=== PATIENT | male | born 1985 | race Caucasian/White ===

== ENCOUNTER 2017-01-28 10:02 | Emergency (ER) | payer OTHER ==
[~2017-01-28] VITALS: Ht 185.4 cm; Wt 95.3 kg
[~2017-01-28 10:02] MED LIST: CLIN300C3 PO; HYDR-3812 PO; PRD20T PO
--- OUTSIDE RECORDS SUMMARY | 2017-01-28 10:08 | XMS REPORT | Continuity of Care Document ---
Author Author [facility] Organization [facility] Address Unknown Phone Unavailable Allergies Active Description Code Type Severity Reaction Onset Reported/Identified Relationship to Patient Clinical Status Yes Penicillins [id number] Drug Allergy Unknown ANAPHYLAXIS 11/17/2015 Medications Problems Date Dx Coded Attending Type Code Diagnosis Diagnosed By 11/12/2015 JOEL CHOW Ot J01.90 11/18/2015 TABATHA GARCIA, VICENTE P Ot J32.1 11/18/2015 TABATHA GARCIA, VICENTE P Ot J32.2 11/24/2015 TABATHA GARCIA, VICENTE P Ot J32.4 11/24/2015 TABATHA GARCIA, VICENTE P Ot J34.2 11/24/2015 TABATHA GARCIA, VICENTE P Ot Z01.818 11/28/2015 TABATHA GARCIA, VICENTE P Ot J32.4 11/28/2015 TABATHA GARCIA, VICENTE P Ot J34.2 11/28/2015 TABATHA GARCIA, VICENTE P Ot Z01.818 12/15/2015 JOEL CHOW Ot J01.90 12/15/2015 TABATHA GARCIA, VICENTE P Ot J32.4 12/15/2015 TABATHA GARCIA, VICENTE P Ot J34.2 12/15/2015 TABATHA GARCIA, VICENTE P Ot Z01.818 Procedures Results Encounters ACCT No. Visit Date/Time Discharge Status Pt. Type Provider Facility Loc./Unit Complaint [id number] 11/18/2015 09:32:00 2014 18:00:00 DIS Outpatient VICENTE MAYS MD [facility] SDC [id number] 11/17/2015 05:29:00 ACT Outpatient VICENTE MAYS MD [facility] PREOP [id number] 10/28/2015 12:03:00 ACT Outpatient JOEL CHOW [facility] RAD
--- NOTE | 2017-01-28 11:13 | ED GI ---
General Chief Complaint: Abdominal/GI Problems Stated Complaint: RECTAL BLEEDING PASSED OUT/HEAD INJURY Source of Information: Patient Exam Limitations: No Limitations History of Present Illness Time Seen By Provider: 11:10 Initial Comments To ER with reports of rectal bleeding over the past 3-4 days. He states that he 's had left lower quadrant abdominal pain for about 3 weeks. Starting about 3 days ago he noticed blood on the toilet paper when wiping that was a maroon color. He also reports what appears to be some mucus-like material in his stools. He reports nausea but no fevers. No history of Crohn's or ulcerative colitis. He rates the pain a 7 out of 10. Today he had leave class to go to the bathroom. When he stood up from going to the bathroom he became lightheaded though he did not actually pass out. He did scrape the left cheek on the bathroom stall but there is no marked there currently. He is attending [employer]. He did finish azithromycin yesterday for sinus infection but he states that he had the left lower quadrant pain several weeks before starting the Zithromax and the blood for starting the Zithromax. Timing/Duration: Getting Worse, Intermittent Severity/Quality: Moderate Location: LLQ Activities at Onset: None Associated Symptoms: No Fever/Chills, Nausea/Vomiting Allergies and Home Medications Allergies Coded Allergies: Penicillins (Verified Allergy, Unknown, ANAPHYLAXIS, 11/17/15) Home Medications Ciprofloxacin HCl 500 Mg Tablet #14 500 MG PO BID Prescribed by: JUDY MONSIVAIS on 01/28/17 1153 Hydrocodone/Acetaminophen 1 Each Tablet #14 1 EACH PO Q4H PRN PRN PAIN Prescribed by: JUDY MONSIVAIS on 01/28/17 1153 L.acidoph & Paracasei,B.lactis 1 Each Capsule #14 1 EACH PO TID Prescribed by: JUDY MONSIVAIS on 01/28/17 1155 Metronidazole 500 Mg Tablet #21 500 MG PO TID Prescribed by: JUDY MONSIVAIS on 01/28/17 1153 Review of Systems Constitutional: see HPI EENTM: No Symptoms Reported Respiratory: No Symptoms Reported Cardiovascular: No Symptoms Reported Gastrointestinal: See HPI Abdominal Pain Diarrhea Nausea Genitourinary: No Symptoms Reported Musculoskeletal: no symptoms reported Skin: no symptoms reported Psychiatric/Neurological: No Symptoms Reported Endocrine: No Symptoms Reported Hematologic/Lymphatic: No Symptoms Reported Past Ddsybgt-Fnwuqq-Lqhukd Hx Patient Social History Recent Foreign Travel: No Contact w/Someone Who Travel: No Surgeries HX Surgeries: Yes Respiratory Hx Respiratory Disorders: No Cardiovascular Hx Cardiac Disorders: No Neurological Hx Neurological Disorders: No Genitourinary Hx Genitourinary Disorders: No Gastrointestinal Hx Gastrointestinal Disorders: Yes Gastrointestinal Disorders: Irritable Bowel Musculoskeletal Hx Musculoskeletal Disorders: No HEENT HX ENT Disorders: Yes (deviated septum, ) Cancer Hx Cancer: No Psychosocial Hx Psychiatric Problems: No Integumentary HX Skin/Integumentary Disorder: No Blood Transfusions Hx Blood Disorders: No Physical Exam Vital Signs VS - Last 72 Hours, by Label 01/28/17 11:10 Temp 98.6 Pulse 80 Resp 18 B/P 137/106 Pulse Ox 98 Capillary Refill : General Appearance: WD/WN no apparent distress HEENT: PERRL/EOMI normal ENT inspection Neck: non-tender full range of motion Respiratory: no respiratory distress no accessory muscle use Gastrointestinal: normal bowel sounds soft tenderness Extremities: normal range of motion non-tender Neurologic/Psychiatric: alert normal mood/affect oriented x 3 Skin: normal color warm/dry Progress/Results/Core Measures Results/Orders Lab Results Laboratory Tests Test 01/28/17 11:06 01/28/17 11:35 Range/Units Alanine Aminotransferase (ALT/SGPT) 114 H 0-55 U/L Albumin 4.8 H 3.2-4.5 G/DL Alkaline Phosphatase 88 40-136 U/L Anion Gap 8 5-14 MMOL/L Aspartate Amino Transf (AST/SGOT) 47 H 5-34 U/L BUN/Creatinine Ratio 14 Basophils # (Auto) 0.0 0.0-0.1 10^3/uL Basophils (%) (Auto) 0 0-10 % Blood Urea Nitrogen 14 7-18 MG/DL Calcium Level 9.8 8.5-10.1 MG/DL Carbon Dioxide Level 27 21-32 MMOL/L Chloride Level 105 98-107 MMOL/L Creatinine 1.00 0.60-1.30 MG/DL Eosinophils # (Auto) 0.2 0.0-0.3 10^3/uL Eosinophils (%) (Auto) 3 0-10 % Erythrocyte Sedimentation Rate 1 0-15 MM/HR Estimat Glomerular Filtration Rate > 60 Glucose Level 75 70-105 MG/DL Hematocrit 48 40-54 % Hemoglobin 16.7 13.3-17.7 G/DL Lymphocytes # (Auto) 2.1 1.0-4.0 X 10^3 Lymphocytes (%) (Auto) 38 12-44 % Mean Corpuscular Hemoglobin 30 25-34 PG Mean Corpuscular Hemoglobin Concent 35 32-36 G/DL Mean Corpuscular Volume 84 80-99 FL Mean Platelet Volume 9.6 7.4-10.4 FL Monocytes # (Auto) 0.6 0.0-1.0 X 10^3 Monocytes (%) (Auto) 10 0-12 % Neutrophils # (Auto) 2.8 1.8-7.8 X 10^3 Neutrophils (%) (Auto) 50 42-75 % Platelet Count 257 130-400 10^3/uL Potassium Level 4.7 3.6-5.0 MMOL/L Red Blood Count 5.63 4.35-5.85 10^6/uL Red Cell Distribution Width 12.1 10.0-14.5 % Sodium Level 140 135-145 MMOL/L Total Bilirubin 0.7 0.1-1.0 MG/DL Total Protein 8.0 6.4-8.2 G/DL White Blood Count 5.7 4.3-11.0 10^3/uL Urine Bacteria NEGATIVE /HPF Urine Bilirubin NEGATIVE NEGATIVE Urine Casts NONE /LPF Urine Clarity CLEAR Urine Color YELLOW Urine Crystals NONE /LPF Urine Culture Indicated NO Urine Glucose (UA) NEGATIVE NEGATIVE Urine Ketones NEGATIVE NEGATIVE Urine Leukocyte Esterase NEGATIVE NEGATIVE Urine Mucus NEGATIVE /LPF Urine Nitrite NEGATIVE NEGATIVE Urine Protein NEGATIVE NEGATIVE Urine RBC RARE /HPF Urine RBC (Auto) NEGATIVE NEGATIVE Urine Specific Moro 1.005 L 1.016-1.022 Urine Squamous Epithelial Cells NONE /HPF Urine Urobilinogen NORMAL NORMAL MG/DL Urine WBC NONE /HPF Urine pH 7 5-9 My Orders Orders-JUDY MONSIVAIS [employer]ANSIT PLANNING MANAGER Cbc With Automated Diff (01/28/17 10:59) Comprehensive Metabolic Panel (01/28/17 10:59) Ua Culture If Indicated (01/28/17 10:59) Saline Lock/Iv-Start (01/28/17 10:59) Erythrocyte Sedimentation Rate (01/28/17 11:09) Ct Abdomen/Pelvis W (01/28/17 11:09) Ketorolac Injection (Toradol Injection) (01/28/17 11:15) Iohexol Injection (Omnipaque 350 Mg/Ml 1 (01/28/17 11:30) Sodium Chloride Flush (Catheter Flush Sy (01/28/17 11:30) Ns (Ivpb) (Sodium Chloride 0.9% Ivpb Bag (01/28/17 11:30) Stool Culture (01/28/17 11:54) C Difficile Ag + Toxin A/B. (01/28/17 11:54) Medications Given in ED Current Medications Medications Dose Ordered Sig/Nilson Route Start Time Stop Time Status Last Admin Dose Admin Iohexol 100 ml ONCE ONCE IV 01/28/17 11:30 01/28/17 11:31 DC 01/28/17 11:22 100 ML Ketorolac Tromethamine 30 mg ONCE ONCE IVP 01/28/17 11:15 01/28/17 11:16 DC 01/28/17 11:37 30 MG Sodium Chloride 100 ml ONCE ONCE IV 01/28/17 11:30 01/28/17 11:31 DC 01/28/17 11:22 80 ML Vital Signs/I&O Vital Sign - Last 12Hours 01/28/17 11:10 Temp 98.6 Pulse 80 Resp 18 B/P 137/106 Pulse Ox 98 Diagnostic Imaging Diagonstic Imaging: CT Plain Films/CT/US/NM/MRI: abdomen, pelvis Comments NAME: JO-ANN SHANKS [facility] REC#: [id number] PT STATUS: REG ER : 1985 PHYSICIAN: JUDY MONSIVAIS TRANSIT PLANNING MANAGER ADMIT DATE: 01/28/17/ER Draft Date of Exam:01/28/17 CT ABDOMEN/PELVIS W PROCEDURE: CT abdomen and pelvis with contrast. TECHNIQUE: Multiple contiguous axial images were obtained through the abdomen and pelvis after administration of intravenous contrast. INDICATION: Bloody stools with diarrhea and nausea Low density seen throughout the liver. No focal hepatic or splenic abnormality is identified. Gallbladder, pancreas and adrenal glands are unremarkable in appearance. Kidneys are also within normal limits for size without evidence of hydronephrosis or perinephric inflammation. There is no evidence of free fluid in the abdomen. No pathologic abdominal adenopathy is seen. There is mild fluid distention of small bowel in the lower abdomen and pelvis. No transition point is seen to indicate an obstruction. Partially opacified urinary bladder is unremarkable. There is no organized fluid collection. There is a rounded calcification to the right of the penile shaft which may represent a phlebolith. IMPRESSION: There may be mild hepatic steatosis. Otherwise, no acute abnormality is identified. Dictated on workstation # [id number] Dict: 01/28/17 1140 Trans: 01/28/17 1145 BRIT [id number] Interpreted by: DENISE ALVAREZ MD Electronically signed by: Departure Communication Progress Notes 1207-question of diverticuli in the sigmoid colon on CT imaging. However he did just finish azithromycin this could also be a pseudomembranous colitis Impression Impression: Primary Impression: Hematochezia Additional Impression: LLQ pain Disposition: HOME, SELF-CARE Condition: Stable Departure-Patient Inst. Decision time for Depature: 11:51 Referrals: DIVYA NOBLES BRETT D DO JENKINS, XAVIER M MD KIDO, TAKAAKI MD NO,LOCAL PHYSICIAN (PCP) Primary Care Physician Patient Instructions: Diverticulitis Add. Discharge Instructions: 1. Return to ER for any concerns 2. Follow-up with your regular physician next week. The local surgeons have been listed. You should follow up with them to discuss a colonoscopy given your rectal bleeding and to confirm the diagnosis of diverticulosis/diverticulitis. 3. Medication as directed All discharge instructions reviewed with patient and/or family. Voiced understanding. Scripts L.acidoph & Paracasei,B.lactis (Probiotic)1 Each Capsule1 Each PO TID #14 CAP Prov:JUDY MONSIVAIS APRN 01/28/17 Hydrocodone/Acetaminophen (Brinson 5-325 Tablet)1 Each Tablet1 Each PO Q4H PRN PAIN #14 TAB Prov:JUDY MONSIVAIS [employer]ANSIT PLANNING MANAGER 01/28/17 Metronidazole (Flagyl)500 Mg [id number] Mg PO TID #21 TAB Prov:JUDY MONSIVAIS APRN 01/28/17 Ciprofloxacin HCl (Cipro)500 Mg Iegopp132 Mg PO BID #14 TAB Prov:JUDY MONSIVAIS APRN 01/28/17 Work/School Note: Work Release Form Date Seen in the Emergency Department: Jan 28, 2017 Return to Work: Jan 30, 2017 JUDY MONSIVAIS APRN Jan 28, 2017 11:13
[2017-01-28 11:14] LABS: BASOPHILS % (AUTO) 0 % (0-10); EOSINOPHILS # (AUTO) 0.2 10^3/uL (0.0-0.3); EOSINOPHILS % (AUTO) 3 % (0-10); LYMPHOCYTES # (AUTO) 2.1 X 10^3 (1.0-4.0); LYMPHOCYTES % (AUTO) 38 % (12-44); MEAN CORPUSCULAR HEMOGLOBIN 30 PG (25-34); MEAN CORPUSCULAR HGB CONC 35 G/DL (32-36); MEAN CORPUSCULAR VOLUME 84 FL (80-99); MEAN PLATELET VOLUME 9.6 FL (7.4-10.4); MONOCYTES # (AUTO) 0.6 X 10^3 (0.0-1.0); MONOCYTES % (AUTO) 10 % (0-12); NEUTROPHILS # (AUTO) 2.8 X 10^3 (1.8-7.8); NEUTROPHILS % (AUTO) 50 % (42-75); PLATELET COUNT 257 10^3/uL (130-400); RED BLOOD COUNT 5.63 10^6/uL (4.35-5.85); RED CELL DISTRIBUTION WIDTH 12.1 % (10.0-14.5); WHITE BLOOD COUNT 5.7 10^3/uL (4.3-11.0)
[2017-01-28] MEDS ORDERED: KETOROLAC 30 MG/ML VIAL IVP ONE (11:15)
[2017-01-28] MEDS ORDERED: CATHETER FLUSH 10 ML SYR IV PRN (11:30)
[2017-01-28] MEDS ORDERED: IOHEXOL 350 MG/ML 100 ML (OMNIPAQUE 350) VIAL IV ONE (11:30)
[2017-01-28] MEDS ORDERED: NS 100 ML (IVPB) BAG IV ONE (11:30)
[2017-01-28 11:35] LABS: ERYTHROCYTE SEDIMENTATION RATE 1 MM/HR (0-15)
[2017-01-28 11:37] LABS: ALANINE AMINOTRANSFERASE 114 U/L (0-55); ALBUMIN 4.8 G/DL (3.2-4.5); ANION GAP 8 MMOL/L (5-14); ASPARTATE AMINO TRANSFERASE 47 U/L (5-34); BILIRUBIN,TOTAL 0.7 MG/DL (0.1-1.0); BLOOD UREA NITROGEN 14 MG/DL (7-18); BUN/CREATININE RATIO 14; CALCIUM 9.8 MG/DL (8.5-10.1); CARBON DIOXIDE 27 MMOL/L (21-32); CHLORIDE 105 MMOL/L (98-107); GFR ESTIMATED > 60; GLUCOSE 75 MG/DL (70-105); POTASSIUM 4.7 MMOL/L (3.6-5.0); SODIUM 140 MMOL/L (135-145)
--- NOTE | 2017-01-28 11:46 | Diagnostic Imaging Report ---
PROCEDURE: CT abdomen and pelvis with contrast. TECHNIQUE: Multiple contiguous axial images were obtained through the abdomen and pelvis after administration of intravenous contrast. INDICATION: Bloody stools with diarrhea and nausea Low density seen throughout the liver. No focal hepatic or splenic abnormality is identified. Gallbladder, pancreas and adrenal glands are unremarkable in appearance. Kidneys are also within normal limits for size without evidence of hydronephrosis or perinephric inflammation. There is no evidence of free fluid in the abdomen. No pathologic abdominal adenopathy is seen. There is mild fluid distention of small bowel in the lower abdomen and pelvis. No transition point is seen to indicate an obstruction. Partially opacified urinary bladder is unremarkable. There is no organized fluid collection. There is a rounded calcification to the right of the penile shaft which may represent a phlebolith. IMPRESSION: There may be mild hepatic steatosis. Otherwise, no acute abnormality is identified. Dictated by: Dictated on workstation # [id number]
[2017-01-28] MEDS ORDERED: HYDR-757 PO (11:53)
[2017-01-28] MEDS ORDERED: CIPR-225 PO (11:53)
[2017-01-28] MEDS ORDERED: METR500T PO (11:53)
[2017-01-28 11:55] LABS: BILIRUBIN,URINE NEGATIVE (NEGATIVE); KETONES,URINE NEGATIVE (NEGATIVE); LEUKOCYTE ESTERASE ,URINE NEGATIVE (NEGATIVE); NITRITE,URINE NEGATIVE (NEGATIVE); PH,URINE 7 (5-9); PROTEIN,URINE NEGATIVE (NEGATIVE); UROBILINOGEN,URINE NORMAL (NORMAL)
[2017-01-28] MEDS ORDERED: L.AC1CAP6 PO (11:55)
[2017-01-28 12:45] VITALS: BP 119/87
== END 2017-01-28 12:45 | disposition home or self-care (01) ==
LOC: EDUNIT# 10:02 → ER 10:05
DX: K92.1 Melena (principal); R10.32 Left lower quadrant pain
CPT/HCPCS: 36415; 74177; 80053; 81000; 85025; 85652; 87045; 87046; 87324; 87449; 96374

== ENCOUNTER 2019-01-22 10:26 | Emergency (ER) | payer SELFPAY ==
[~2019-01-22] VITALS: Ht 185.4 cm; Wt 104.3 kg
[~2019-01-22 10:26] MED LIST changes: +ACHD5005 PO; +CIPR-225 PO; -HYDR-3812 PO; +HYDR-4226 PO; +L.AC1CAP6 PO; +METR500T PO
[2019-01-22] MEDS ORDERED: ASPIRIN 81 MG CHEW (CHILDREN'S ASA) PO ONE (10:45)
[2019-01-22 10:47] LABS: BASOPHILS % (AUTO) 0 % (0-10); EOSINOPHILS # (AUTO) 0.1 10^3/uL (0.0-0.3); EOSINOPHILS % (AUTO) 1 % (0-10); HEMATOCRIT 44 % (40-54); HEMOGLOBIN 15.2 G/DL (13.3-17.7); LYMPHOCYTES # (AUTO) 2.4 X 10^3 (1.0-4.0); LYMPHOCYTES % (AUTO) 43 % (12-44); MEAN CORPUSCULAR HEMOGLOBIN 30 PG (25-34); MEAN CORPUSCULAR HGB CONC 35 G/DL (32-36); MEAN CORPUSCULAR VOLUME 85 FL (80-99); MEAN PLATELET VOLUME 9.7 FL (7.4-10.4); MONOCYTES # (AUTO) 0.5 X 10^3 (0.0-1.0); MONOCYTES % (AUTO) 9 % (0-12); NEUTROPHILS # (AUTO) 2.6 X 10^3 (1.8-7.8); NEUTROPHILS % (AUTO) 47 % (42-75); PLATELET COUNT 239 10^3/uL (130-400); WHITE BLOOD COUNT 5.6 10^3/uL (4.3-11.0)
[2019-01-22 11:01] LABS: INR 0.9 (0.8-1.4); PROTHROMBIN TIME PATIENT 12.6 SEC (12.2-14.7)
[2019-01-22 11:10] LABS: MYOGLOBIN SERUM 21.6 NG/ML (10.0-92.0)
--- NOTE | 2019-01-22 11:15 | Diagnostic Imaging Report ---
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 Shortness of air. TECHNIQUE: Single view chest 10:49 AM. CORRELATION STUDY: None FINDINGS: Heart size is borderline enlarged. Vasculature overall within normal limits. The lungs are clear with no consolidating infiltrate. There is no significant effusion or pneumothorax. IMPRESSION: 1. Cardiac enlargement without failure. No infiltrate. Dictated by: Dictated on workstation # [id number]
[2019-01-22 11:25] LABS: ALANINE AMINOTRANSFERASE 74 U/L (0-55); ALBUMIN 4.6 GM/DL (3.2-4.5); ALKALINE PHOSPHATASE 82 U/L (40-136); BILIRUBIN,TOTAL 0.7 MG/DL (0.1-1.0); BUN/CREATININE RATIO 19; CALCIUM 9.8 MG/DL (8.5-10.1); CARBON DIOXIDE 25 MMOL/L (21-32); CHLORIDE 106 MMOL/L (98-107); GFR ESTIMATED > 60; GLUCOSE 91 MG/DL (70-105); MAGNESIUM 2.5 MG/DL (1.8-2.4); POTASSIUM 4.5 MMOL/L (3.6-5.0); SODIUM 139 MMOL/L (135-145); TOTAL PROTEIN 7.6 GM/DL (6.4-8.2)
[2019-01-22] MEDS ORDERED: ANTACID SUSP 30 ML UDC (MYLANTA) PO ONE (11:45)
[2019-01-22] MEDS ORDERED: LIDOCAINE 2% VISCOUS 15 ML UDC PO ONE (11:45)
[2019-01-22] MEDS ORDERED: KETOROLAC 30 MG/ML VIAL IVP ONE ×2 (12:30→12:45)
--- NOTE | 2019-01-22 13:16 | ED Chest Pain ---
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 PT STARTED TO HAVE LEFT SHOULDER PAIN AND DECIDED HE NEEDED TO COME TO THE ED. PT ALSO REPORTS SOA. Nursing Sepsis Screen: No Definite Risk Source: patient Exam Limitations: no limitations History of Present Illness Date Seen by Provider: Jan 22, 2019 Time Seen by Provider: 10:25 Initial Comments This 33-year-old gentleman presents to the emergency room with complaints of central upper and left upper chest pain that radiates toward the shoulder. This episode of pain started about 07:00. He rates his pain as 7/10. He has hypertension but denies any other history of heart problems. He noted pain on his way to classes this morning. He was not doing anything strenuous last night or today. He reports a history of GERD but states this pain was distinctly different. He felt mildly short of air while lying on his back. He denies any tobacco use. He also reports having some shortness of air while being intimate with his a couple weeks ago. He is treated for hypertension. He reports blood pressure at home last night was 135/86. He denies any family history of heart disease or early cardiac . Allergies and Home Medications Allergies Coded Allergies: Penicillins (Verified Allergy, Unknown, ANAPHYLAXIS, 11/17/15) Home Medications Ciprofloxacin HCl 500 Mg Tablet, 500 MG PO BID Prescribed by: JUDY MONSIVAIS on 01/28/17 1153 Hydrocodone/Acetaminophen 1 Each Tablet, 1 EACH PO Q4H PRN for PAIN Prescribed by: JUDY MONSIVAIS on 01/28/17 1153 L.acidoph & Paracasei,B.lactis 1 Each Capsule, 1 EACH PO TID Prescribed by: JUDY MONSIVAIS on 01/28/17 1155 Metronidazole 500 Mg Tablet, 500 MG PO TID Prescribed by: JUDY MONSIVAIS on 01/28/17 1153 Patient Home Medication List Home Medication List Reviewed: Yes Review of Systems Review of Systems Constitutional: no symptoms reported EENTM: No Symptoms Reported Respiratory: See HPI Cardiovascular: See HPI Gastrointestinal: No Symptoms Reported Genitourinary: No Symptoms Reported Musculoskeletal: no symptoms reported Skin: no symptoms reported Psychiatric/Neurological: No Symptoms Reported Endocrine: No Symptoms Reported Hematologic/Lymphatic: No Symptoms Reported Past Yrazkja-Izeqqx-Rgnihc Hx Past Med/Social Hx: Reviewed and Corrections made Patient Social History Alcohol Use: Denies Use Recreational Drug Use: No Smoking Status: Never a Smoker Recent Foreign Travel: No Contact w/Someone Who Travel: No Recent Infectious Disease Expo: No Recent Hopitalizations: No Past Medical History Surgeries: Yes (sinus surgery) Appendectomy Respiratory: No Cardiac: Yes Hypertension Neurological: No Genitourinary: No Gastrointestinal: Yes Gastroesophageal Reflux, Irritable Bowel Musculoskeletal: No Endocrine: No HEENT: No Cancer: No Psychosocial: No Integumentary: No Blood Disorders: No Family Medical History Reviewed and Corrections made Hypertension Physical Exam Vital Signs Vital Signs - First Documented 01/22/19 10:27 Temp 97.2 Pulse 70 Resp 19 B/P (MAP) 146/92 (110) Pulse Ox 100 Capillary Refill : Less Than 3 Seconds Height, Weight, BMI Height: 6'1.00" Weight: 230lbs. oz. 104.778132po; 25.72 BMI Method:Stated General Appearance: No Apparent Distress, WD/WN HEENT: PERRL/EOMI, Normal ENT Inspection Neck: Normal Inspection Respiratory: Lungs Clear, Normal Breath Sounds, No Accessory Muscle Use, No Respiratory Distress Cardiovascular: Regular Rate, Rhythm, No Edema, No Murmur Gastrointestinal: Non Tender, Soft Extremity: Normal Inspection, Non Tender, No Calf Tenderness, No Pedal Edema, Other (negative Kd) Neurologic/Psychiatric: Oriented x3, No Motor/Sensory Deficits, Normal Mood/ Affect, store merchandiser II-XII Norm as Tested Skin: Normal Color, Warm/Dry Progress/Results/Core Measures Results/Orders Lab Results Laboratory Tests Test 01/22/19 10:39 01/22/19 13:35 Range/Units White Blood Count 5.6 4.3-11.0 10^3/uL Red Blood Count 5.16 4.35-5.85 10^6/uL Hemoglobin 15.2 13.3-17.7 G/DL Hematocrit 44 40-54 % Mean Corpuscular Volume 85 80-99 FL Mean Corpuscular Hemoglobin 30 25-34 PG Mean Corpuscular Hemoglobin Concent 35 32-36 G/DL Red Cell Distribution Width 12.0 10.0-14.5 % Platelet Count 239 130-400 10^3/uL Mean Platelet Volume 9.7 7.4-10.4 FL Neutrophils (%) (Auto) 47 42-75 % Lymphocytes (%) (Auto) 43 12-44 % Monocytes (%) (Auto) 9 0-12 % Eosinophils (%) (Auto) 1 0-10 % Basophils (%) (Auto) 0 0-10 % Neutrophils # (Auto) 2.6 1.8-7.8 X 10^3 Lymphocytes # (Auto) 2.4 1.0-4.0 X 10^3 Monocytes # (Auto) 0.5 0.0-1.0 X 10^3 Eosinophils # (Auto) 0.1 0.0-0.3 10^3/uL Basophils # (Auto) 0.0 0.0-0.1 10^3/uL Erythrocyte Sedimentation Rate 1 0-15 MM/HR Prothrombin Time 12.6 12.2-14.7 SEC INR Comment 0.9 0.8-1.4 Activated Partial Thromboplast Time 30 24-35 SEC D-Dimer 0.23 0.00-0.49 UG/ML Sodium Level 139 135-145 MMOL/L Potassium Level 4.5 3.6-5.0 MMOL/L Chloride Level 106 98-107 MMOL/L Carbon Dioxide Level 25 21-32 MMOL/L Anion Gap 8 5-14 MMOL/L Blood Urea Nitrogen 19 H 7-18 MG/DL Creatinine 1.00 0.60-1.30 MG/DL Estimat Glomerular Filtration Rate > 60 BUN/Creatinine Ratio 19 Glucose Level 91 70-105 MG/DL Calcium Level 9.8 8.5-10.1 MG/DL Corrected Calcium 8.5-10.1 MG/DL Magnesium Level 2.5 H 1.8-2.4 MG/DL Total Bilirubin 0.7 0.1-1.0 MG/DL Aspartate Amino Transf (AST/SGOT) 32 5-34 U/L Alanine Aminotransferase (ALT/SGPT) 74 H 0-55 U/L Alkaline Phosphatase 82 40-136 U/L Myoglobin 21.6 10.0-92.0 NG/ML Troponin I < 0.028 0.031 H <0.028 NG/ML C-Reactive Protein High Sensitivity 0.13 0.00-0.50 MG/DL B-Type Natriuretic Peptide 11.1 <100.0 PG/ML Total Protein 7.6 6.4-8.2 GM/DL Albumin 4.6 H 3.2-4.5 GM/DL My Orders Orders - KRISTIN LAGUERRE MD Cbc With Automated Diff (01/22/19 10:37) Magnesium (01/22/19 10:37) Chest 1 View, Ap/Pa Only (01/22/19 10:37) Ekg Tracing (01/22/19 10:37) Cardiac Profile 1 (01/22/19 10:37) Comprehensive Metabolic Panel (01/22/19 10:37) Myoglobin Serum (01/22/19 10:37) Protime With Inr (01/22/19 10:37) Partial Thromboplastin Time (01/22/19 10:37) O2 (01/22/19 10:37) Monitor-Rhythm Ecg Trace Only (01/22/19 10:37) Lipid Panel (01/23/19 06:00) Aspirin Chewable Tablet (Baby Aspirin Ch (01/22/19 10:45) Saline Lock/Iv-Start (01/22/19 10:37) Fibrin Degradation Products (01/22/19 10:37) Lidocaine 2% Viscous 15 Ml (Xylocaine Vi (01/22/19 11:45) Antacid Suspension (Mylanta Suspension (01/22/19 11:45) BNP (01/22/19 12:27) Hs C Reactive Protein (01/22/19 12:28) Erythrocyte Sedimentation Rate (01/22/19 12:28) Ketorolac Injection (Toradol Injection) (01/22/19 12:30) Ketorolac Injection (Toradol Injection) (01/22/19 12:45) Metoprolol Succinate (Xl) Tab (Toprol Xl (01/22/19 13:45) Troponin I (01/22/19 13:33) Thyroid Analyzer (01/22/19 15:54) Medications Given in ED Current Medications Medications Dose Ordered Sig/Nilson Route Start Time Stop Time Status Last Admin Dose Admin Al Hydrox/Mg Hydrox/Simethicone 30 ml ONCE ONCE PO 01/22/19 11:45 01/22/19 11:46 DC 01/22/19 11:38 30 ML Aspirin 324 mg ONCE ONCE PO 01/22/19 10:45 01/22/19 10:46 DC 01/22/19 10:44 324 MG Ketorolac Tromethamine 30 mg ONCE ONCE IVP 3/4/19 12:30 01/22/19 12:31 DC 01/22/19 12:36 30 MG Lidocaine HCl 15 ml ONCE ONCE PO 01/22/19 11:45 01/22/19 11:46 DC 01/22/19 11:38 15 ML Metoprolol Succinate 25 mg ONCE ONCE PO 01/22/19 13:45 01/22/19 13:46 DC 01/22/19 13:44 25 MG Vital Signs/I&O 01/22/19 10:27 Temp 97.2 Pulse 70 Resp 19 B/P (MAP) 146/92 (110) Pulse Ox 100 Blood Pressure Mean: 110 Progress Progress Note #1: Time: 13:16 Progress Note Workup has been unremarkable except for cardiomegaly noted on x-ray. Because of GERD history, GI cocktail was administered but did not resolve his pain. Patient was then given Toradol which improved his pain from 7/10 down to 4/10. Labs were added including CRP, BNP, and ESR. These were all unremarkable. Progress Note #2: Time: 15:00 Progress Note Case was discussed with Dr. Hinton who recommended repeating a troponin level at the 6 hour sona from onset of pain. Patient's repeat troponin came back slightly elevated at 0.031. Case was again discussed with Dr. Hinton. He recommended Plavix and Toprol-XL be administered and patient then be admitted for further workup. These medications were administered. Unfortunately, [facility] is on admission diversion due to bed availability. Patient is agreeable to transfer. Case was discussed with Dr. Crawford at [facility] who graciously accepts the transfer. Patient still has mild pain rated as 4/ 10. He was offered treatment for this pain but declines. Initial ECG Impression Date: Jan 22, 2019 Initial ECG Impression Time: 10:32 Initial ECG Rate: 72 Initial ECG Rhythm: Normal Sinus Initial ECG Intervals: Normal Initial ECG Impression: Normal Comment Normal sinus rhythm with no ST elevation or depression. No abnormal intervals or axis deviation. Diagnostic Imaging Diagonstic Imaging: Xray Plain Films/CT/US/NM/MRI: chest Comments Chest x-ray viewed by me and report reviewed. 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 Shortness of air. TECHNIQUE: Single view chest 10:49 AM. CORRELATION STUDY: None FINDINGS: Heart size is borderline enlarged. Vasculature overall within normal limits. The lungs are clear with no consolidating infiltrate. There is no significant effusion or pneumothorax. IMPRESSION: 1. Cardiac enlargement without failure. No infiltrate. Dictated by: Dictated on workstation # [id number] Dict: 01/22/19 1112 Trans: 01/22/19 1113 Interpreted by: SCOT CHACON DO Electronically signed by: SCOT CHACON DO 01/22/19 1113 Departure Impression Primary Impression: Chest pain Qualified Codes: R07.9 - Chest pain, unspecified Additional Impressions: Shortness of breath Elevated troponin Cardiomegaly Disposition: XF T-[facility] Condition: Stable Transfer Time Spoke to Accepting Phy: 15:06 Transfer Progress Notes Based on recommendations from Dr. Hinton, this patient is being transferred to [facility]. Transfer was accepted by Dr. Crawford. Transfer Facility: [facility] Method of Transfer: EMS Departure-Patient Inst. Decision time for Depature: 16:42 Referrals: NO,LOCAL PHYSICIAN (PCP/Family) Primary Care Physician KRISTIN LAGUERRE MD Jan 22, 2019 13:16
[2019-01-22 16:35] VITALS: BP 146/92
== END 2019-01-22 16:35 | disposition short-term general hospital (02) ==
LOC: EDUNIT# 10:26 → ER 10:27
DX: R07.89 Other chest pain (principal); R06.02 Shortness of breath; I51.7 Cardiomegaly; I42.9 Cardiomyopathy, unspecified; R79.89 Other specified abnormal findings of blood chemistry; I10 Essential (primary) hypertension; K21.9 Gastro-esophageal reflux disease without esophagitis; K58.9 Irritable bowel syndrome, unspecified; Z88.0 Allergy status to penicillin; Z90.49 Acquired absence of other specified parts of digestive tract
CPT/HCPCS: 36415; 71045; 80053; 83735; 83874; 83880; 84443; 84484; 85025; 85379; 85610; 85652; 85730; 86141; 93041

== ENCOUNTER 2019-03-27 06:29 | Emergency (ER) | payer SELFPAY ==
[~2019-03-27] VITALS: Ht 185.4 cm; Wt 97.5 kg
--- NOTE | 2019-03-27 06:45 | NUR ---
pt denies being able to void at this time. specimen cup provided.
[2019-03-27] MEDS ORDERED: LISI10TA2 (06:47)
[2019-03-27] MEDS ORDERED: OMEP10CA4 PO (06:47)
[2019-03-27 06:58] LABS: BASOPHILS % (AUTO) 0 % (0-10); EOSINOPHILS # (AUTO) 0.2 10^3/uL (0.0-0.3); EOSINOPHILS % (AUTO) 3 % (0-10); HEMATOCRIT 44 % (40-54); HEMOGLOBIN 15.2 G/DL (13.3-17.7); LYMPHOCYTES # (AUTO) 2.4 X 10^3 (1.0-4.0); LYMPHOCYTES % (AUTO) 41 % (12-44); MEAN CORPUSCULAR HEMOGLOBIN 29 PG (25-34); MEAN CORPUSCULAR HGB CONC 34 G/DL (32-36); MEAN CORPUSCULAR VOLUME 86 FL (80-99); MEAN PLATELET VOLUME 9.4 FL (7.4-10.4); MONOCYTES % (AUTO) 16 % (0-12); NEUTROPHILS # (AUTO) 2.4 X 10^3 (1.8-7.8); NEUTROPHILS % (AUTO) 41 % (42-75); PLATELET COUNT 271 10^3/uL (130-400); RED CELL DISTRIBUTION WIDTH 12.1 % (10.0-14.5)
--- NOTE | 2019-03-27 07:00 | NUR ---
ASSUMED CARE OF PT.
[2019-03-27 07:12] LABS: ALANINE AMINOTRANSFERASE 68 U/L (0-55); ALBUMIN 4.5 GM/DL (3.2-4.5); ALKALINE PHOSPHATASE 85 U/L (40-136); BILIRUBIN,TOTAL 0.4 MG/DL (0.1-1.0); BUN/CREATININE RATIO 14; CALCIUM 9.4 MG/DL (8.5-10.1); CARBON DIOXIDE 24 MMOL/L (21-32); CHLORIDE 106 MMOL/L (98-107); CREATININE SERUM 0.96 MG/DL (0.60-1.30); GFR ESTIMATED > 60; GLUCOSE 95 MG/DL (70-105); LIPASE 75 U/L (8-78); POTASSIUM 4.2 MMOL/L (3.6-5.0); SODIUM 140 MMOL/L (135-145); TOTAL PROTEIN 7.6 GM/DL (6.4-8.2)
[2019-03-27] MEDS ORDERED: KETOROLAC 30 MG/ML VIAL IVP ONE (07:15)
--- NOTE | 2019-03-27 07:16 | NUR ---
PT COMPLAINS OF PAIN. DR NOTIFIED. WARM BLANKET ET REMOTE GIVEN.
--- NOTE | 2019-03-27 07:24 | ED Abdominal Pain ---
General Chief Complaint: Abdominal/GI Problems Stated Complaint: MID BACK PAIN & RT UPPER ABDOMIN PAIN Nursing Triage Note: abdominal/back pain Sepsis Screen: No Definite Risk Source of Information: Patient Exam Limitations: No Limitations History of Present Illness Date Seen by Provider: March 27, 2019 Time Seen by Provider: 06:42 Initial Comments This 33-year-old gentleman presents to the emergency room with complaints of right upper quadrant pain that radiates to his back. Symptoms started in March 23. Pain has been fairly constant since then. Patient has associated nausea without vomiting. He had an urgent bowel movement this morning but that did not improve his pain. He also states his stool was foul-smelling. He reports having a colonoscopy about a year ago due to problems with abdominal pain and loose stools. It was reportedly unremarkable. He also had a hepatobiliary scan done around a year ago in [place], [place] by Dr. Angeles who is his primary care provider. He reports there was sludge in his gallbladder but no other acute problems. Pain is worse with movement but he has not noted in association with eating. He denies urinary changes. Allergies and Home Medications Allergies Coded Allergies: Penicillins (Verified Allergy, Unknown, ANAPHYLAXIS, 11/17/15) Patient Home Medication List Home Medication List Reviewed: Yes Review of Systems Review of Systems Constitutional: no symptoms reported EENTM: No Symptoms Reported Respiratory: No Symptoms Reported Cardiovascular: No Symptoms Reported Gastrointestinal: See HPI Genitourinary: No Symptoms Reported Musculoskeletal: no symptoms reported Skin: no symptoms reported Psychiatric/Neurological: No Symptoms Reported Endocrine: No Symptoms Reported Hematologic/Lymphatic: No Symptoms Reported Past Ayyrptf-Iakzrk-Ywynby Hx Past Med/Social Hx: Reviewed and Corrections made Patient Social History Alcohol Use: Occasionally Uses Recreational Drug Use: No Smoking Status: Never a Smoker 2nd Hand Smoke Exposure: No Recent Foreign Travel: No Contact w/Someone Who Travel: No Recent Infectious Disease Expo: No Recent Hopitalizations: No Seasonal Allergies Seasonal Allergies: No Past Medical History Surgeries: Yes (sinus surgery) Abdominal (colonoscopy), Appendectomy Respiratory: No Cardiac: Yes Hypertension Neurological: No Genitourinary: No Gastrointestinal: Yes Gastroesophageal Reflux, Irritable Bowel Musculoskeletal: No Endocrine: No HEENT: No Cancer: No Psychosocial: No Integumentary: No Blood Disorders: No Family Medical History Reviewed and Corrections made Cancer (colon), Hypertension Physical Exam Vital Signs Vital Signs - First Documented 03/27/19 06:40 Temp 98.1 Pulse 75 Resp 18 B/P (MAP) 126/90 (102) Pulse Ox 96 O2 Delivery Room Air Capillary Refill : Less Than 3 Seconds Height/Weight/BMI Height: 6'1.00" Weight: 215lbs. oz. 97.228885ev; 25.72 BMI Method:Stated General Appearance: WD/WN, no apparent distress HEENT: PERRL/EOMI, normal ENT inspection Neck: normal inspection Respiratory: lungs clear, normal breath sounds, no respiratory distress, no accessory muscle use Cardiovascular: regular rate, rhythm, no edema, no murmur Gastrointestinal: normal bowel sounds, soft, tenderness (right upper quadrant) Extremities: normal inspection, no pedal edema Back: CVA tenderness (R) (mild); No CVA tenderness (L) Neurologic/Psychiatric: deicer element winder machine II-XII nml as tested, no motor/sensory deficits, alert, normal mood/affect, oriented x 3 Skin: normal color, warm/dry Progress/Results/Core Measures Results/Orders Lab Results Laboratory Tests Test 03/27/19 06:44 03/27/19 07:28 Range/Units White Blood Count 6.0 4.3-11.0 10^3/uL Red Blood Count 5.19 4.35-5.85 10^6/uL Hemoglobin 15.2 13.3-17.7 G/DL Hematocrit 44 40-54 % Mean Corpuscular Volume 86 80-99 FL Mean Corpuscular Hemoglobin 29 25-34 PG Mean Corpuscular Hemoglobin Concent 34 32-36 G/DL Red Cell Distribution Width 12.1 10.0-14.5 % Platelet Count 271 130-400 10^3/uL Mean Platelet Volume 9.4 7.4-10.4 FL Neutrophils (%) (Auto) 41 L 42-75 % Lymphocytes (%) (Auto) 41 12-44 % Monocytes (%) (Auto) 16 H 0-12 % Eosinophils (%) (Auto) 3 0-10 % Basophils (%) (Auto) 0 0-10 % Neutrophils # (Auto) 2.4 1.8-7.8 X 10^3 Lymphocytes # (Auto) 2.4 1.0-4.0 X 10^3 Monocytes # (Auto) 1.0 0.0-1.0 X 10^3 Eosinophils # (Auto) 0.2 0.0-0.3 10^3/uL Basophils # (Auto) 0.0 0.0-0.1 10^3/uL Sodium Level 140 135-145 MMOL/L Potassium Level 4.2 3.6-5.0 MMOL/L Chloride Level 106 98-107 MMOL/L Carbon Dioxide Level 24 21-32 MMOL/L Anion Gap 10 5-14 MMOL/L Blood Urea Nitrogen 13 7-18 MG/DL Creatinine 0.96 0.60-1.30 MG/DL Estimat Glomerular Filtration Rate > 60 BUN/Creatinine Ratio 14 Glucose Level 95 70-105 MG/DL Calcium Level 9.4 8.5-10.1 MG/DL Corrected Calcium 9.0 8.5-10.1 MG/DL Total Bilirubin 0.4 0.1-1.0 MG/DL Aspartate Amino Transf (AST/SGOT) 33 5-34 U/L Alanine Aminotransferase (ALT/SGPT) 68 H 0-55 U/L Alkaline Phosphatase 85 40-136 U/L C-Reactive Protein High Sensitivity 0.52 H 0.00-0.50 MG/DL Total Protein 7.6 6.4-8.2 GM/DL Albumin 4.5 3.2-4.5 GM/DL Lipase 75 8-78 U/L Urine Color YELLOW Urine Clarity CLEAR Urine pH 6 5-9 Urine Specific [place] 1.015 L 1.016-1.022 Urine Protein NEGATIVE NEGATIVE Urine Glucose (UA) NEGATIVE NEGATIVE Urine Ketones NEGATIVE NEGATIVE Urine Nitrite NEGATIVE NEGATIVE Urine Bilirubin NEGATIVE NEGATIVE Urine Urobilinogen NORMAL NORMAL MG/DL Urine Leukocyte Esterase NEGATIVE NEGATIVE Urine RBC (Auto) NEGATIVE NEGATIVE Urine RBC NONE /HPF Urine WBC NONE /HPF Urine Squamous Epithelial Cells NONE /HPF Urine Crystals NONE /LPF Urine Bacteria NEGATIVE /HPF Urine Casts NONE /LPF Urine Mucus NEGATIVE /LPF Urine Culture Indicated NO My Orders Orders - KRISTIN LAGUERRE MD Ua Culture If Indicated (03/27/19 06:42) Cbc With Automated Diff (03/27/19 06:49) Comprehensive Metabolic Panel (03/27/19 06:49) Lipase (03/27/19 06:49) Ed Iv/Invasive Line Start (03/27/19 06:49) Hs C Reactive Protein (03/27/19 06:49) Ketorolac Injection (Toradol Injection) (03/27/19 07:15) Us Gallbladder [id number] (03/27/19 08:13) Chest Pa/Lat (2 View) (03/27/19 08:13) Abdomen, Flat & Upright/Decub (03/27/19 08:13) Lidocaine 2% Viscous 15 Ml (Xylocaine Vi (03/27/19 10:15) Antacid Suspension (Mylanta Suspension (03/27/19 10:15) Helicobacter Pylori Cyndy Igg (03/27/19 11:14) Medications Given in ED Current Medications Medications Dose Ordered Sig/Nilson Route Start Time Stop Time Status Last Admin Dose Admin Al Hydrox/Mg Hydrox/Simethicone 30 ml ONCE ONCE PO 03/27/19 10:15 03/27/19 10:16 DC 03/27/19 10:17 30 ML Ketorolac Tromethamine 15 mg ONCE ONCE IVP 03/27/19 07:15 03/27/19 07:16 DC 03/27/19 07:24 15 MG Lidocaine HCl 15 ml ONCE ONCE PO 03/27/19 10:15 03/27/19 10:16 DC 03/27/19 10:17 15 ML Vital Signs/I&O 03/27/19 03/27/19 06:40 11:00 Temp 98.1 Pulse 75 76 Resp 18 16 B/P (MAP) 126/90 (102) 115/86 (96) Pulse Ox 96 99 O2 Delivery Room Air Room Air Blood Pressure Mean: 102 Progress Progress Note #1: Time: 07:19 Progress Note Patient was seen and examined. Lab work has been reviewed and is unremarkable. UA is pending. Patient rated his pain as 7/10 and initially declined any treatment for nausea or pain. He is now requesting something for pain and Toradol was ordered. His ER course is pending review of the UA. Progress Note #2: Time: 08:20 Progress Note Workup so far has been unremarkable. Patient still has some pain after Toradol. I discussed further workup with patient. We will pursue ultrasound imaging of the gallbladder and the right kidney to assess for gallbladder disease or hydronephrosis. Plain films will also be obtained. Progress Note #3: Progress Note No source of pain was identified. GI cocktail was given but did not improve his pain. We discussed risks and benefits of CT imaging. We have elected to carefully observe for the time being. Patient will seek out CT imaging from his primary care provider or a return visit to the ER if necessary if symptoms progress. See discharge instructions. Diagnostic Imaging Diagonstic Imaging: Xray Plain Films/CT/US/NM/MRI: abdomen, pelvis Comments X-rays of the abdomen and pelvis viewed by me and report reviewed. See report below: NAME: [facility] SHAN[facility] REC#: [id number] PT STATUS: REG ER : 1985 PHYSICIAN: KRISTIN LAGUERRE MD ADMIT DATE: 03/27/19/ER Draft Date of Exam:03/27/19 ABDOMEN, FLAT UPRIGHT/DECUB EXAMINATION: Abdominal radiographs, upright and supine views. 3 images. DATE: March 27, 2019. CLINICAL INDICATION: 33-year-old male, right upper quadrant abdominal pain. COMPARISON: Right upper quadrant ultrasound of March 27, 2019. COMMENTS: There are gas-filled segments of small and large bowel. There are no abnormally distended gas-filled segments of bowel. There is no identified pneumatosis, portal venous gas, or free intraperitoneal air. There is no identified abnormal radiodensity overlying the expected positions of the kidneys. There are left-sided pelvic calcifications of unclear exact location. No definite correlate is present on the prior CT abdomen/pelvis of January 28, 2017. IMPRESSION: 1. Unremarkable bowel gas pattern. 2. Left-sided pelvic calcification of uncertain exact etiology and without definite correlate on the January 28, 2017 CT abdomen/pelvis. There was a tiny left phlebolith on the prior exam although the calcification on the current exam does appear to be larger. Recommend correlation with symptoms as a left distal ureteral stone cannot be excluded. Dictated on workstation # [id number] Dict: 03/27/19 0940 Trans: 03/27/19 0951 [id number] Interpreted by: SENDY FLORES MD Diagonstic Imaging: Xray Plain Films/CT/US/NM/MRI: chest Comments Chest x-ray viewed by me and report reviewed. See report below: NAME: JO[facility] SHANKS [facility] REC#: [id number] PT STATUS: REG ER : 1985 PHYSICIAN: KRISTIN LAGUERRE MD ADMIT DATE: 03/27/19/ER Draft Date of Exam:03/27/19 CHEST PA/LAT (2 VIEW) EXAMINATION: CHEST (PA AND LATERAL). CLINICAL INDICATION: 33-year-old male, right-sided chest pain. COMPARISON: January 22, 2019. FINDINGS: The heart size and mediastinal contours are unremarkable. There is no identified pneumothorax. There is no pleural effusion. There is no identified focal airspace consolidation. IMPRESSION: No identified acute cardiopulmonary abnormality. Dictated on workstation # [id number] Dict: 03/27/19 0939 Trans: 03/27/19 0948 [id number] Interpreted by: SENDY FLORES MD Diagonstic Imaging: Ultrasound Plain Films/CT/US/NM/MRI: abdomen Comments Ultrasound report reviewed. Discussed with body technician. NAME: JO-ANN SHANKS [facility] REC#: [id number] PT STATUS: REG ER : 1985 PHYSICIAN: KRISTIN LAGUERRE MD ADMIT DATE: 03/27/19/ER Draft Date of Exam:03/27/19 US GALLBLADDER [id number] EXAM: RIGHT UPPER QUADRANT ULTRASOUND. DATE: March 27, 2019. COMPARISON: CT abdomen and pelvis of January 28, 2017. INDICATION: 33-year-old male, right upper quadrant abdominal pain. PROCEDURE: Two-dimensional grayscale and color doppler ultrasound examination of the right upper quadrant was performed. FINDINGS: Liver: The liver is of normal size and echotexture without solid or cystic masses. Bile ducts and gallbladder: There is no pericholecystic fluid, gallbladder wall thickening, or gallstones. The gallbladder wall measures 0.2 cm. The common bile duct is not well seen. There is no intrahepatic bile duct dilation. Right kidney: Unremarkable right kidney. No hydronephrosis. The right kidney measures 10.9 cm x 4.8 cm x 5.5 cm. Pancreas: The pancreas is not well seen. IMPRESSION: 1. No evidence of cholelithiasis or acute cholecystitis. 2. No intrahepatic bile duct dilation. The common bile duct is not well seen. 3. The pancreas is not well seen. 4. Unremarkable sonographic appearance of the liver parenchyma. Dictated on workstation # [id number] Dict: 03/27/19 0937 Trans: 03/27/19 0946 [id number] Interpreted by: SENDY FLORES MD Departure Impression Primary Impression: Right upper quadrant pain Disposition: 01 HOME, SELF-CARE Condition: Stable Departure-Patient Inst. Decision time for Depature: 11:12 Referrals: NO,LOCAL PHYSICIAN (PCP/Family) Primary Care Physician Patient Instructions: Acute Abdomen (Belly Pain), Adult (DC) Add. Discharge Instructions: Follow-up with your primary care provider soon as possible and return to the emergency room if you have worsening symptoms. An H pylori test was ordered to be run at our send out lab facility. Please follow-up on the results with your primary care provider. For pain, you may take Tylenol (acetaminophen) up to 1000 mg 2 or 3 times a day. You may add ibuprofen up to 600 mg 3 or 4 times a day. Take ibuprofen with food or milk to avoid irritation on your stomach and continue to take omeprazole. Avoid food and drinks that irritate your abdomen. All discharge instructions reviewed with patient and/or family. Voiced understanding. KRISTIN LAGUERRE MD March 27, 2019 07:24
[2019-03-27 07:34] LABS: BILIRUBIN,URINE NEGATIVE (NEGATIVE); CLARITY,URINE CLEAR; COLOR,URINE YELLOW; GLUCOSE, URINE (UA) NEGATIVE (NEGATIVE); KETONES,URINE NEGATIVE (NEGATIVE); LEUKOCYTE ESTERASE ,URINE NEGATIVE (NEGATIVE); NITRITE,URINE NEGATIVE (NEGATIVE); PH,URINE 6 (5-9); PROTEIN,URINE NEGATIVE (NEGATIVE); UROBILINOGEN,URINE NORMAL (NORMAL)
--- NOTE | 2019-03-27 07:43 | NUR ---
PT STATES THE TORADOL HAS HELPED HIS PAIN.
[2019-03-27 07:59] LABS: BACTERIA,URINE NEGATIVE /HPF
--- NOTE | 2019-03-27 08:32 | NUR ---
NOTIFIED PT THAT HE WOULD BE GOING TO ULTRASOUND SOON. DENIES NEEDS AT THIS TIME.
--- NOTE | 2019-03-27 09:36 | NUR ---
DENIES NEEDS AT THIS TIME.
--- NOTE | 2019-03-27 09:46 | Diagnostic Imaging Report ---
EXAM: RIGHT UPPER QUADRANT ULTRASOUND. DATE: March 27, 2019. COMPARISON: CT abdomen and pelvis of January 28, 2017. INDICATION: 33-year-old male, right upper quadrant abdominal pain. PROCEDURE: Two-dimensional grayscale and color doppler ultrasound examination of the right upper quadrant was performed. FINDINGS: Liver: The liver is of normal size and echotexture without solid or cystic masses. Bile ducts and gallbladder: There is no pericholecystic fluid, gallbladder wall thickening, or gallstones. The gallbladder wall measures 0.2 cm. The common bile duct is not well seen. There is no intrahepatic bile duct dilation. Right kidney: Unremarkable right kidney. No hydronephrosis. The right kidney measures 10.9 cm x 4.8 cm x 5.5 cm. Pancreas: The pancreas is not well seen. IMPRESSION: 1. No evidence of cholelithiasis or acute cholecystitis. 2. No intrahepatic bile duct dilation. The common bile duct is not well seen. 3. The pancreas is not well seen. 4. Unremarkable sonographic appearance of the liver parenchyma. Dictated by: Dictated on workstation # [id number]
--- NOTE | 2019-03-27 09:49 | Diagnostic Imaging Report ---
EXAMINATION: CHEST (PA AND LATERAL). CLINICAL INDICATION: 33-year-old male, right-sided chest pain. COMPARISON: January 22, 2019. FINDINGS: The heart size and mediastinal contours are unremarkable. There is no identified pneumothorax. There is no pleural effusion. There is no identified focal airspace consolidation. IMPRESSION: No identified acute cardiopulmonary abnormality. Dictated by: Dictated on workstation # [id number]
--- NOTE | 2019-03-27 09:52 | Diagnostic Imaging Report ---
EXAMINATION: Abdominal radiographs, upright and supine views. 3 images. DATE: March 27, 2019. CLINICAL INDICATION: 33-year-old male, right upper quadrant abdominal pain. COMPARISON: Right upper quadrant ultrasound of March 27, 2019. COMMENTS: There are gas-filled segments of small and large bowel. There are no abnormally distended gas-filled segments of bowel. There is no identified pneumatosis, portal venous gas, or free intraperitoneal air. There is no identified abnormal radiodensity overlying the expected positions of the kidneys. There are left-sided pelvic calcifications of unclear exact location. No definite correlate is present on the prior CT abdomen/pelvis of January 28, 2017. IMPRESSION: 1. Unremarkable bowel gas pattern. 2. Left-sided pelvic calcification of uncertain exact etiology and without definite correlate on the January 28, 2017 CT abdomen/pelvis. There was a tiny left phlebolith on the prior exam although the calcification on the current exam does appear to be larger. Recommend correlation with symptoms as a left distal ureteral stone cannot be excluded. Dictated by: Dictated on workstation # [id number]
--- NOTE | 2019-03-27 10:10 | NUR ---
IN TALKING TO PT AT THIS TIME.
[2019-03-27] MEDS ORDERED: ANTACID SUSP 30 ML UDC (MYLANTA) PO ONE (10:15)
[2019-03-27] MEDS ORDERED: LIDOCAINE 2% VISCOUS 15 ML UDC PO ONE (10:15)
[2019-03-27 11:00] VITALS: BP 115/86
== END 2019-03-27 11:20 | disposition home or self-care (01) ==
LOC: EDUNIT# 06:29 → ER 06:37
DX: R10.11 Right upper quadrant pain (principal); I10 Essential (primary) hypertension; K21.9 Gastro-esophageal reflux disease without esophagitis; K58.9 Irritable bowel syndrome, unspecified; Z88.0 Allergy status to penicillin; Z90.49 Acquired absence of other specified parts of digestive tract; Z98.890 Other specified postprocedural states; Z80.0 Family history of malignant neoplasm of digestive organs; Z82.49 Family history of ischemic heart disease and other diseases of the circulatory system
CPT/HCPCS: 36415; 71046; 74019; 76705; 80053; 81000; 83690; 85025; 86141; 86677; 96374